=== PATIENT | female | born 1965 | race Caucasian/White ===

== ENCOUNTER 2019-05-09 08:40 | Emergency (ER) | payer OTHER ==
[2019-05-09 09:01] VITALS: BP 107/59
--- NOTE | 2019-05-09 09:29 | ED Physician Documentation ---
PD HPI LOWER EXT INJURY - Stated complaint Stated Complaint: L FOOT INJURY - Chief complaint Chief Complaint: Ext Problem - History obtained from History obtained from: Patient - History of Present Illness PD HPI LOW EXT INJURY LOCATION: Left, Ankle, Foot Type of injury: Twist (inversion while stepping down onto haybale. Has bruising and continued pain with walking this morning.) Timing - onset: Yesterday Timing - details: Abrupt onset, Still present Improved by: Rest, Immobilization Worsened by: Moving, Palpating, Other (walking) Associated symptoms: Swelling, Discolored (bruising color lateral inframalleolar and 5th MT base area.). No: Weakness, Numbness Review of Systems Skin: denies: Abrasion (s), Laceration (s) Musculoskeletal: denies: Neck pain, Back pain Neurologic: denies: Confused, Altered mental status, Head injury, LOC PD PAST MEDICAL HISTORY - Past Medical History Cardiovascular: None Respiratory: None Musculoskeletal: None Derm: None - Allergies Allergies/Adverse Reactions: Allergies Allergy/AdvReac Type Severity Reaction Status Date / Time Sulfa (Sulfonamide Allergy Hives Verified 05/09/19 08:49 Antibiotics) PD ED PE NORMAL - Vitals Vital signs reviewed: Yes - General General: Alert and oriented X 3, No acute distress, Well developed/nourished - Back Back: No spinal TTP - Derm Derm: Normal color, Warm and dry - Extremities Extremities: Other (bruising and swelling lateral proximal foot and inframalleolar area. No gross laxity with strict inversion. Inverting foot more, so ATFL, does cause pain.). No: No tenderness to palpate - Neuro Neuro: Alert and oriented X 3, No motor deficit, Normal speech Results - Vitals Vitals: Oxygen O2 Source Room air - Rads (name of study) left ankle and foot Radiology: Prelim report reviewed (no fractures seen. Clinicallly seems like partial tear of lateral ligaments. ), See rad report PD MEDICAL DECISION MAKING - ED course Complexity details: reviewed results, re-evaluated patient, considered differential, d/w patient Departure - Departure Disposition: 01 Home, Self Care Clinical Impression: High ankle sprain of left lower extremity Qualifiers: Encounter type: initial encounter Qualified Code(s): S93.432A - Sprain of tibiofibular ligament of left ankle, initial encounter Condition: Stable Record reviewed to determine appropriate education?: Yes Instructions: ED Sprain Ankle Follow-Up: Ed Patterson MD [Provider Admit Priv/Credential] - Comments: Your x-ray appears normal to me. No fractures. You obviously have injured your ankle and clinically would sound like partial tearing of the ankle ligaments. This can heal with protected motion. Wear the walking boot when up and around for the next 3 to 4 weeks. Elevate ice and rest your ankle often to reduce swelling today tomorrow. Anti-inflammatory such as ibuprofen or naproxen 2-3 times a day for inflammation and pain. Add Tylenol if needed for pain. Follow- up with your primary or orthopedics if not improving well over the next 1 to 2 weeks as it should be doing a fair amount better in that timeframe though will take probably about a month to heal up. Discharge Date/Time: 05/09/19 09:43
--- NOTE | 2019-05-09 09:32 | XRAY Report ---
Reason: injury Procedure Date: 05/09/2019 Accession Number: [id number] / [id number] Procedure: XR - Ankle 3 View LT CPT Code: Final Report FULL RESULT: EXAM: LEFT ANKLE RADIOGRAPHY EXAM DATE: 05/09/2019 09:14 AM. CLINICAL HISTORY: Injury. Lateral malleolar pain COMPARISON: None. TECHNIQUE: 3 views. FINDINGS: Bones: Normal. No fractures or bone lesions. Joints: Normal. No effusion. No subluxations. The ankle mortise is normally aligned. Soft Tissues: Soft tissue swelling. IMPRESSION: Normal ankle radiography. [facility]
--- NOTE | 2019-05-09 09:32 | XRAY Report ---
Reason: injury Procedure Date: 05/09/2019 Accession Number: [id number] / [id number] Procedure: XR - Foot 3 View LT CPT Code: Final Report FULL RESULT: EXAM: LEFT FOOT RADIOGRAPHY EXAM DATE: 05/09/2019 09:13 AM. CLINICAL HISTORY: Injury. Lateral malleolar pain COMPARISON: None. TECHNIQUE: 3 views. FINDINGS: Bones: Normal. No fractures or bone lesions. Joints: Normal. No subluxations. Soft Tissues: Soft tissue swelling. IMPRESSION: Normal foot radiography. [facility]
== END 2019-05-09 09:43 | disposition home or self-care (01) ==
LOC: ED 08:40
DX: S93.432A Sprain of tibiofibular ligament of left ankle, initial encounter (principal); X50.1XXA Overexertion from prolonged static or awkward postures, initial encounter
CPT/HCPCS: 99283; 99284